=== PATIENT | male | born 1990 | race Caucasian/White ===

== ENCOUNTER 2023-12-19 05:58 | Emergency (ER) | payer OTHER ==
[2023-12-19] MEDS ORDERED: Ibuprofen 200 MG TAB ONE (08:51)
== END 2023-12-19 09:01 | disposition home or self-care (01) ==
LOC: ERS 05:58
DX: S83.92XA Sprain of unspecified site of left knee, initial encounter (principal); S50.02XA Contusion of left elbow, initial encounter; W18.30XA Fall on same level, unspecified, initial encounter